=== PATIENT | female | born 1955 | race Caucasian/White ===

== ENCOUNTER 2019-02-16 17:29 | Inpatient (IN) | payer OTHER ==
[~2019-02-16] VITALS: Ht 170.2 cm; Wt 127.0 kg
[~2019-02-16 17:29] MED LIST: AMARYL2 MG PO; CLARITIN10 MG PO; GLUCOPHAGE XR500 MG PO; LOVASTATIN 20 M20 MG PO; PROZAC10 MG PO
[2019-02-16 17:36] VITALS: BP 157/100
[2019-02-16] MEDS ORDERED: METFORMIN HCL500 M3 PO (17:41)
[2019-02-16] MEDS ORDERED: TIMOLOL 0.5%-DO10 ML OP (17:42)
[2019-02-16] MEDS ORDERED: ADVIL200 M1 PO (17:43)
[2019-02-16 18:02] LABS: ABSOLUTE BASOPHILS 0.1 thou/uL (0.0-0.2); ABSOLUTE EOSINOPHILS 0.2 thou/uL (0.0-0.7); ABSOLUTE LYMPHOCYTES 2.9 thou/uL (0.8-5.3); ABSOLUTE MONOCYTES 0.7 thou/uL (0.0-1.2); ABSOLUTE NEUTROPHILS 4.1 thou/uL (1.6-8.1); BASOPHILS 0.9 %; EOSINOPHILS 3.1 %; HEMATOCRIT 40.8 % (37.0-47.0); HEMOGLOBIN 13.8 gm/dL (12.0-15.0); LYMPHOCYTES 36.3 %; MCH 29.3 pg (26.0-34.0); MCHC 33.8 g/dL (28.0-37.0); MCV 86.6 fL (80.0-100.0); MONOCYTES 8.3 %; MPV 6.8 fl. (7.2-11.1); NUCLEATED RBCS 0 /100WBC; PLATELET COUNT* 311 thou/uL (150-400); POLYS 51.4 %; RBC 4.71 mil/uL (4.20-5.00)
[2019-02-16 18:11] LABS: PROTIME 10.1 Seconds (9.20-11.50)
[2019-02-16 18:14] LABS: ALBUMIN 3.6 g/dL (3.4-5.0); CALCIUM 9.9 mg/dL (8.5-10.1); CREATININE 1.2 mg/dL (0.6-1.3); POTASSIUM 3.4 mmol/L (3.5-5.1); TOTAL BILIRUBIN 0.2 mg/dL (<0.1-1.0); TOTAL PROTEIN 7.5 g/dL (6.4-8.2)
[2019-02-16 20:00] VITALS: BP 148/65; BP 96/60
[2019-02-16 20:20] VITALS: BP 96/60
[2019-02-16] MEDS ORDERED: DIPHENHIST50 MG PO ×2 (20:35→20:38)
[2019-02-16] MEDS ORDERED: HYDROCHLOROTHIA25 M2 PO (20:37)
[2019-02-17 00:39] VITALS: BP 143/64
[2019-02-17 04:00] VITALS: BP 117/56
[2019-02-17 07:37] VITALS: BP 124/63
[2019-02-17 09:40] LABS: CHOLESTEROL 250 mg/dL (<200); HDL CHOLESTEROL 55 mg/dL (>40); LDL CHOLESTEROL 173 mg/dL (<100); TC:HDL 4.5 Ratio (Not establshd); TRIGLYCERIDE 113 mg/dL (<150); VLDL 23 mg/dL (<40)
[2019-02-17 09:42] LABS: SERUM ASSESSMENT Clear
[2019-02-17 12:04] VITALS: BP 117/52
--- NOTE | 2019-02-17 13:10 | 2DMMODE ---
[place] [address] 2 D/M-MODE ECHOCARDIOGRAM Name: MARK ANTHONYFLAKITA J Room: [address] IN [facility]#: [id number] Admission: 02/16/19 Attend Phys: Jesus Rodriguez Discharge: Date of : 59 Date of Service: 02/17/19 1309 Report #: [id number] THIS REPORT FOR: //name// APPROVED REPORT Study performed: 02/17/2019 11:46:00 EXAM: Comprehensive 2D, Doppler, and color-flow Echocardiogram Patient Location: In-Patient Room #: [facility] Status: routine BSA: 2.33 HR: 72 bpm BP: 124/63 mmHg Rhythm: NSR Other Information Study Quality: Good Indications Atrial Fibrillation 2D Dimensions IVSd: 10.40 (7-11mm) LVOT Diam: 20.51 (18-24mm) LVDd: 46.31 mm PWd: 8.17 (7-11mm) LVDs: 30.57 (25-40mm) Aortic Root: 30.94 mm Volumes Left Atrial Volume (Systole) LA ESV Index: 19.20 mL/m2 Aortic Valve AoV Peak Emigdio.: 1.71 m/s AO Peak Gr.: 11.71 mmHg LVOT Max P.10 mmHg AO Mean Gr.: 5.90 mmHg LVOT Mean P.59 mmHg LVOT Max V: 1.13 m/s AO V2 VTI: 30.37 cm LVOT Mean V: 0.74 m/s KEYANA (VTI): 2.53 cm2 LVOT V1 VTI: 23.23 cm Mitral Valve E/A Ratio: 0.84 MV Decel. Time: 290.07 ms MV E Max Emigdio.: 0.58 m/[place] [address] 2 D/M-MODE ECHOCARDIOGRAM Name: FLAKITA HOPSON Room: [address] IN [facility]#: [id number] Admission: 02/16/19 Attend Phys: Jesus Rodriguez Discharge: Date of : 59 Date of Service: 02/17/19 1309 Report #: [id number] MV PHT: 84.12 ms MVA (PHT): 2.62 cm2 TDI E/Lateral E': 4.46 E/Medial E': 5.27 Medial E' Emigdio.: 0.11 m/s Lateral E' Emigdio.: 0.13 m/s Pulmonary Valve PV Peak Emigdio.: 0.77 m/s PV Peak Gr.: 2.37 mmHg Left Ventricle The left ventricle is normal size. There is hypokinesis of the basal portion of the inferior wall. There is normal left ventricular wall thickness. Left ventricular systolic function is preserved. LVEF is 65-70%. Grade I - abnormal relaxation pattern. Right Ventricle The right ventricle is normal size. The right ventricular systolic function is normal. Atria The left atrium size is normal. The right atrium size is normal. Aortic Valve The aortic valve is normal in structure. No aortic regurgitation is present. There is no aortic valvular stenosis. Mitral Valve The mitral valve is normal in structure. Trace mitral regurgitation. No evidence of mitral valve stenosis. Tricuspid Valve The tricuspid valve is normal in structure. Trace tricuspid regurgitation. Pulmonic Valve The pulmonary valve is normal in structure. There is no pulmonic valvular regurgitation. Great Vessels The aortic root is normal in size. IVC is normal in size and collapses >50% with inspiration[place] [address] 2 D/M-MODE ECHOCARDIOGRAM Name: FLAKITA HOPSON Room: [address] IN [facility]#: [id number] Admission: 02/16/19 Attend Phys: Jesus Rodriguez Discharge: Date of : 59 Date of Service: 02/17/19 1309 Report #: [id number] There is no pericardial effusion. <Conclusion> The left ventricle is normal size. There is normal left ventricular wall thickness. Left ventricular systolic function is preserved. LVEF is 65-70%. Grade I - abnormal relaxation pattern. There is hypokinesis of the basal portion of the inferior wall. Trace mitral regurgitation. Trace tricuspid regurgitation. IVC is normal in size and collapses >50% with inspiration. <ELECTRONICALLY SIGNED> By: Will Duff MD, FACC 02/17/191308 08 08 Will Duff MD, FACC /INF
--- NOTE | 2019-02-17 13:22 | EKG ---
[place] [address] ELECTROCARDIOGRAM REPORT Name: MARK ANTHONYFLAKITA J Room: [address] ADM IN .R.#: [id number] Admission: 02/16/19 Attend Phys: Lacho Saldaña Discharge: Date of : 59 Report #: [id number] THIS REPORT FOR: //name// 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1955 Requested By: Mann Lay Order Number: [id number] MD: Will Duff Measurements Intervals [place] Rate: 173 P: RI: QRS: 15 QRSD: 94 T: 38 QT: 295 QTc: 501 Interpretive Statements Atrial fibrillation with rapid V-rate RSR' in V1 or V2, right VCD or RVH Baseline wander in lead(s) V5 Compared to ECG 12/26/2008 10:02:40 Right ventricular hypertrophy now present RSR' in V1 or V2 now present Sinus rhythm no longer present Incomplete right bundle-branch block no longer present Electronically Signed On 02-17-2019 13:22:14 CDT by Will Duff [email or web address] <ELECTRONICALLY SIGNED> By: Will Duff MD, FACC 02/17/19 1322 174 174 Will Duff MD, FAC /EPI
--- NOTE | 2019-02-17 13:22 | EKG ---
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1955 Requested By: Mann Lay Order Number: [id number] MD: Will Duff Measurements Intervals [place] Rate: 84 P: 57 VT: 131 QRS: 10 QRSD: 98 T: 37 QT: 353 QTc: 418 Interpretive Statements Sinus rhythm RSR' in V1 or V2, right VCD or RVH Baseline wander in lead(s) V5 Compared to ECG 12/26/2008 10:02:40 Right ventricular hypertrophy now present RSR' in V1 or V2 now present Incomplete right bundle-branch block no longer present Electronically Signed On 02-17-2019 13:22:21 CDT by Will Duff [email or web address] <ELECTRONICALLY SIGNED> By: Will Duff MD, FACC 02/17/19 1322 175 175 Will Duff MD, FACC /EPI
--- NOTE | 2019-02-17 16:29 | CARDNUC ---
[place] [address] CARDIAC NUCLEAR IMAGING REPORT Name: FLAKITA HOPSON Room: [address] IN [facility]#: [id number] Admission: 02/16/19 Attend Phys: Jesus Rodriguez Discharge: Date of : 59 Date of Service: 02/17/19 1628 Report #: [id number] THIS REPORT FOR: //name// APPROVED REPORT Imaging Protocol: Stress Tc-99mm Only Study performed: 02/17/2019 08:45:00 Indication: Atrial Fibrillation Patient Location: In-Patient Room #: 219 Stress Tech: Tammi Gonsalez Stress Nurse: Valeria Echevarria RN NM Tech:LEFTY Sullivan Ht: 5 ft 7 in Wt: 280 lbs BSA: 2.33 m2 BMI: 43.84 Medical History Medical History: HTN, Hyperlipidemia, Diabetes Medications: asa-81 Allergies: No known drug allergies Cardiac Risk Factors: Age, Past Smoker, HTN, Hyperlipidemia, FHX of CAD Exercise History: Indeterminate Pharmacologic Stress Pharmacologic stress test was performed by injecting Regadenoson 0.4 mg IV push over 10-15 seconds immediately followed by the intravenous injection of 32.9 mCi of Tc-99m Sestamibi. Time of stress injection: 1515 Date: 02/17/2019 Administration Route: IV Administration Site: Right AC Gated Stress SPECT was performed 40 minutes after stress injection. The images were gated to evaluate regional wall motion and calculate left ventricular ejection fraction. Prone imaging was performed. Stress Test Details Stress Test: Pharmacologic stress testing performed using 0.4 mg of regadenoson per 5 mL given IV over 10 seconds. Reason for pharmacologic stress test: physical limitation. HR Max Heart Rate (APMHR): 159 [place] [address] CARDIAC NUCLEAR IMAGING REPORT Name: FLAKITA HOPSON Room: [address]#: [id number] Admission: 02/16/19 Attend Phys: Jesus Rodriguez Discharge: Date of : 59 Date of Service: 02/17/19 1628 Report #: [id number] Resting HR: 71 bpm Target HR (85% APMHR): 135 bpm Max HR Achieved: 107 bpm % of APMHR: 67 Recovery HR: 92 bpm BP Resting BP: 97/65 mmHg Max BP: 163/71 mmHg Recovery BP: 132/76 mmHg ECG Resting ECG: Sinus Rhythm Stress ECG: Sinus Tachycardia ST Change: None Arrhythmia: None Recovery ECG: Sinus Rhythm Recovery ST Change: None Recovery Arrhythmia: None Clinical Reason for Termination: Completed protocol Exercise duration: 0 min sec Exercise capacity: 1 METs The patient tolerated Lexiscan infusion without significant cardiac symptoms. Nurse Comments pt too weak to walk on treadmill, hx a fib with rvr Stress ECG Conclusion The baseline 12-lead EKG show sinus rhythm without significant ST or T wave abnormality. EKGs obtained during and post Lexiscan infusion show sinus rhythm and sinus tachycardia with no significant ST or T wave changes when compared to baseline. There were no stress-induced arrhythmias. Study Quality Study: Good Artifact: No artifact Study Data Post stress, the left ventricular ejection was 69%.. Perfusion Post stress perfusion images show uniform uptake of the radioisotope throughout the myocardium. There were no defects [place] [address] CARDIAC NUCLEAR IMAGING REPORT Name: MARK ANTHONYFLAKITA Sona Room: [address] IN [facility]#: [id number] Admission: 02/16/19 Attend Phys: Jesus Rodriguez Discharge: Date of : 59 Date of Service: 02/17/19 1628 Report #: [id number] or infarct. Wall Motion Normal left ventricular wall motion. Nuclear Conclusion ECG Findings: negative for ischemia Clinical Findings: negative for ischemia Nuclear Findings: negative for ischemia Exercise Capacity: not assessed Left Ventricular Function: normal Risk Study: low Myocardial perfusion images show no defect to suggest infarct or ischemia. Left ventricular systolic function is normal on gated studies. This is a low risk study. <Conclusion> The baseline 12-lead EKG show sinus rhythm without significant ST or T wave abnormality. EKGs obtained during and post Lexiscan infusion show sinus rhythm and sinus tachycardia with no significant ST or T wave changes when compared to baseline. There were no stress-induced arrhythmias. <ELECTRONICALLY SIGNED> By: Will Duff MD, FACC 02/17/19 1628 27 27 Will Duff MD, FACC /INF
[2019-02-17 20:00] VITALS: BP 152/79
[2019-02-18] VITALS: BP 125/61
[2019-02-18 04:00] VITALS: BP 122/68
[2019-02-18 07:59] VITALS: BP 133/62
[2019-02-18] MEDS ORDERED: ELIQUIS5 MG PO (09:21)
[2019-02-18] MEDS ORDERED: LOPRESSOR25 PO (09:21)
[2019-02-18] MEDS ORDERED: ATORVASTATIN CA20 MG PO (09:21)
[2019-02-18 10:01] VITALS: BP 133/62
== END 2019-02-18 11:00 | disposition home or self-care (01) | DRG 309 ==
LOC: M.ERS 17:29 → M.2W 18:11 → M.TBA-ER 18:11 → M.2W 20:20
PROVIDERS: Emergency Medicine; Registered Nurse; ADMIT Internal Medicine
DX: I48.0 Paroxysmal atrial fibrillation (principal); I10 Essential (primary) hypertension; I48.92 Unspecified atrial flutter; E78.5 Hyperlipidemia, unspecified; E11.9 Type 2 diabetes mellitus without complications; F32.9 Major depressive disorder, single episode, unspecified; R00.0 Tachycardia, unspecified; E66.9 Obesity, unspecified; Z68.41 Body mass index [BMI] 40.0-44.9, adult; Z82.49 Family history of ischemic heart disease and other diseases of the circulatory system; Z79.82 Long term (current) use of aspirin; Z79.899 Other long term (current) drug therapy